=== PATIENT | female | born 1950 | race Caucasian/White ===

== ENCOUNTER 2018-06-02 12:11 | Emergency (ER) | payer MEDICARE, SELFPAY ==
[2018-06-02 12:16] VITALS: BP 137/85; PULSE 80; RESP 14; TEMP 36.7; O2SAT 98; BMI 34.0
--- NOTE | 2018-06-02 12:49 | RAD_ITS ---
STUDY: X-RAY - RIGHT ELBOW REASON FOR EXAM: Female, 68 years old. Elbow pain following a fall. TECHNIQUE: 3 view(s) of the elbow. COMPARISON: None. FINDINGS: There is a nondisplaced radial head fracture. Normal radiocapitellar and ulnotrochlear articulations. Joint effusion. RAD/Elbow min 3 Views IMPRESSION: Nondisplaced radial head fracture. Joint effusion. Electronically Signed: Keith Merrill MD at 13:54 EST Tel [phone], Service support ,
--- NOTE | 2018-06-02 15:22 | ED.DCSUM_ITS ---
- ER Visit Summary Date of Service: 06/02/18 Chief Complaint: Right elbow pain History of Present Illness: The patient is a 68 F who fell today on accident. She injured her right elbow. No other injuries or complaints. Physical Examination: Tender to palpation to her right elbow. Pain with pronation and supination. Neurovascular intact distally. Skin is intact. No other injuries. Test Results: X-ray shows a radial head fracture, nondisplaced. Emergency Department Course and Treatment: Patient was placed in a splint. She tolerated this well. Neurovascular intact distally afterwards. She was treated with a prescription for Percocet and referred to orthopedics. Return for any new or worsening issues. Treatment Plan: As above Disposition: Discharge Impression: 1. Right radial head fracture This note was generated with [employer] dictation software. It may contain incorrect words, spelling, and punctuation that were not noted in review of the chart prior to signing ED Disposition - Plan for ED Patient: Chief Complaint: Upper Extremity Injury Referrals: Karan Schuster MD [Primary Care Provider] -
--- NOTE | 2018-06-02 15:22 | ED.DEP ---
ED Disposition - Plan for ED Patient: Chief Complaint: Upper Extremity Injury Instructions: ED Fx Radial Head Prescriptions: Oxycodone HCl/Acetaminophen [Percocet 5/325] 1 tab PO Q6H PRN PRN 3 Days #12 tab PRN Reason: Pain Referrals: Marcial Carl MD [STAFF PHYSICIAN] -
[2018-06-02 15:31] VITALS: RESP 14
== END 2018-06-02 15:32 | disposition home or self-care (01) ==
LOC: ED 14:20
PROVIDERS: Emergency Provider Emergency Medicine; Family Provider Family Medicine; PCP Family Medicine
DX: S52.124A Nondisplaced fracture of head of right radius, initial encounter for closed fracture (principal); W19.XXXA Unspecified fall, initial encounter; Y93.9 Activity, unspecified; Y92.9 Unspecified place or not applicable; Y99.9 Unspecified external cause status; E03.9 Hypothyroidism, unspecified; Z79.899 Other long term (current) drug therapy
CPT/HCPCS: 29105; 73080; 99283

== ENCOUNTER 2020-08-04 12:00 | Outpatient (RCR) | payer MEDICARE, SELFPAY ==
[2020-08-04] MEDS: COVID-19 VACC, MRNA(PFIZER)/PF 30 MCG/0.3 ML SYRINGE IM (11:13)
[2020-08-25] MEDS: COVID-19 VACC, MRNA(PFIZER)/PF 30 MCG/0.3 ML SYRINGE IM (11:03)
== END 2020-11-01 23:59 ==
LOC: IMMUN 12:00
PROVIDERS: PCP Family Medicine; Visit Provider Family Medicine
DX: Z23 Encounter for immunization (principal)
CPT/HCPCS: 0001A; 0002A; 91300

== ENCOUNTER → 2022-07-30 | Outpatient (CLI) | payer MEDICARE, SELFPAY ==
--- NOTE | 2022-07-30 12:45 | CDU_ITS ---
Reason For Study: AMAUROSIS FUGAX Rt. Velocities/BP Lt. Velocities/BP Prox CCA 121.9/27.4 cm/sec. Prox CCA 94.1/22.8 cm/sec. Mid CCA 117.0/27.4 cm/sec. Mid CCA 99.0/25.3 cm/sec. Dist CCA 58.4/11.8 cm/sec. Dist CCA 65.8/16.7 cm/sec. Prox ICA 61.3/15.8 cm/sec. Prox ICA 63.4/15.5 cm/sec. Mid ICA 51.5/13.4 cm/sec. Mid ICA 83.1/22.6 cm/sec. Dist ICA 45.1/16.4 cm/sec. Dist ICA 50.1/21.5 cm/sec. Rt. ICA/CCA = 61.3/117.0=0.5. Lt. ICA/CCA = 83.1/99.0=0.8. Prox ECA 78.1/22.8 cm/sec. Prox ECA 86.7/16.7 cm/sec. Rt. Vert. 58.5/17.9 cm/sec. Lt. Vert. 49.4/18.8 cm/sec. Right Extracranial There is intimal thickening but no significant atherosclerotic plaque noted in the right common carotid artery. The right proximal CCA is tortuous. There is intimal thickening but no significant atherosclerotic plaque noted in the right internal carotid artery. There is intimal thickening but no significant atherosclerotic plaque noted in the right external carotid artery. Antegrade flow is noted in the right vertebral artery. Left Extracranial There is intimal thickening but no significant atherosclerotic plaque noted in the left common carotid artery. There is intimal thickening but no significant atherosclerotic plaque noted in the left internal carotid artery. The left internal carotid artery is very tortuous. There is no significant atherosclerotic plaque noted in the left external carotid artery. Antegrade flow is noted in the left vertebral artery. Procedure Carotid Duplex 71313. This is a Carotid Duplex examination using B-mode, color flow and specral Doppler. Exam performed in department. VL/Carotid Duplex Ultrasound Interpretation Summary Normal right extracranial internal carotid. Normal left extracranial internal carotid. Patent and antegrade vertebrals bilaterally. Ordering Physician: Raciel Uriarte Referring Physician: Karan Schuster Performed By: Steph Navarrete, MINNIE, RVT
== END | disposition home or self-care (01) ==
LOC: CVS 12:43
PROVIDERS: PCP Family Medicine; Visit Provider Ophthalmology
DX: G45.3 Amaurosis fugax (principal)
CPT/HCPCS: 93880

== ENCOUNTER → 2025-04-07 | Outpatient (CLI) | payer MEDICARE, SELFPAY ==
--- NOTE | 2025-04-07 13:50 | ECHOD_ITS ---
Reason For Study Reason For Study: MURMUR Procedure This was a 2D Doppler, Color Flow transthoracic echocardiogram. The study was technically difficult. Due to arrhythmia. Exam performed in department. Left Ventricle Normal LV size. Mild concentric left ventricular hypertrophy. The left ventricular ejection fraction is 65 %. Stage 1 diastolic dysfunction. Right Ventricle Normal right ventricle. Atria The left and right atria are normal. Mitral Valve Moderate mitral annular calcification extending into the posterior leaflet. Trivial mitral valve insufficiency. Tricuspid Valve Trivial tricuspid valve insufficiency. Unable to estimate RV systolic pressure due to insufficient tricuspid regurgitant envelope. Aortic Valve Trisinus/trileaflet aortic valve. Aortic sclerosis, no stenosis. Mild (1+) aortic valve insufficiency. Pulmonic Valve The pulmonic valve is not well visualized. Great Vessels Moderately dilated ascending aorta. Recommend CT scan for further evaluation. Pericardium/Pleural No pericardial effusion. MMode/2D Measurements & Calculations LVIDd: 3.5 cm IVSd: 1.2 cm Ao root diam: 4.0 cm LVIDs: 1.8 cm LVPWd: 0.97 cm RVDd: 3.6 cm FS: 49.2 % asc Aorta Diam: 5.0 cm LAV(MOD-bp): 51.8 ml LVAd ap4: 23.0 cm2 LAV(MOD-bp) Indexed: 27.5 ml/m2 LVLd ap4: 7.4 cm LAV(MOD-sp2): 49.2 ml EDV(MOD-sp4): 60.6 ml LAV(MOD-sp4): 47.6 ml EDV(sp4-el): 60.5 ml LVAs ap4: 11.6 cm2 LVLs ap4: 6.4 cm ESV(MOD-sp4): 18.4 ml ESV(sp4-el): 17.7 ml EF(MOD-sp4): 69.6 % EF(sp4-el): 70.6 % LVAd ap2: 19.9 cm2 SV(MOD-sp4): 42.2 ml SV(MOD-sp2): 35.4 ml LVLd ap2: 6.9 cm SI(MOD-sp4): 22.4 ml/m2 SI(MOD-sp2): 18.8 ml/m2 EDV(MOD-sp2): 48.8 ml EDV(sp2-el): 48.8 ml LVAs ap2: 9.0 cm2 LVLs ap2: 5.3 cm ESV(MOD-sp2): 13.4 ml ESV(sp2-el): 13.1 ml EF(MOD-sp2): 72.5 % SV(sp4-el): 42.7 ml LA dimension(2D): 4.0 cm LA A4 area: 17.0 cm2 TAPSE: 1.9 cm Time Measurements MV dec time: 0.25 sec Doppler Measurements & Calculations MV E max shreyas: 74.5 cm/sec Lat Peak E' Shreyas: 4.8 cm/sec Med Peak E' Shreyas: 4.9 cm/sec MV A max shreyas: 104.9 cm/sec E/E' lat: 15.4 E/E' med: 15.2 MV E/A: 0.71 MV V2 max: 119.7 cm/sec MV P1/2t max shreyas: 78.7 cm/sec Ao V2 max: 156.5 cm/sec MV max P.7 mmHg MV P1/2t: 82.4 msec Ao max P.8 mmHg MV V2 mean: 59.4 cm/sec MV dec slope: 279.7 cm/sec2 Ao V2 mean: 108.3 cm/sec MV mean P.7 mmHg Ao mean P.2 mmHg MV V2 VTI: 28.1 cm MVA(P1/2t): 2.7 cm2 Ao V2 VTI: 30.4 cm AV (velocity ratio): 0.83 AI max shreyas: 350.0 cm/sec LV V1 max: 119.9 cm/sec PA V2 max: 104.8 cm/sec AI max P.1 mmHg LV V1 max P.8 mmHg AI dec slope: 132.0 cm/sec2 LV V1 mean P.3 mmHg AI P1/2t: 776.3 msec LV V1 mean: 88.2 cm/sec LV V1 VTI: 25.2 cm PI end-d shreyas: 122.3 cm/sec TR max shreyas: 256.7 cm/sec TR max P.4 mmHg ECHO/Echo Complete Interpretation Summary The left ventricular ejection fraction is 65 %. Stage 1 diastolic dysfunction. Aortic sclerosis, no stenosis. Mild (1+) aortic valve insufficiency. Moderately dilated ascending aorta. Recommend CT scan for further evaluation. Ordering Physician: Esteban Holder Referring Physician: Esteban Holder Performed By: Steph Navarrete, MINNIE, RVT
== END | disposition home or self-care (01) ==
LOC: CVS 13:49
PROVIDERS: PCP Family Medicine; Referring Provider Family Medicine; Visit Provider Family Medicine
DX: R01.1 Cardiac murmur, unspecified (principal)
CPT/HCPCS: 93306

== ENCOUNTER → 2025-04-28 | Outpatient (CLI) | payer MEDICARE, SELFPAY ==
--- NOTE | 2025-04-28 10:17 | RAD_ITS ---
PROCEDURE: ESOPHAGUS DUAL CONTRAST 04/28/2025 REASON FOR EXAM: DYSPHAGIA TECHNIQUE: ESOPHAGUS DUAL CONTRAST FLUOROSCOPIC TIME: 50 seconds. Radiation dose: 6.9 mGy FLUOROGRAPHIC IMAGES: 18 COMPARISON: None FINDINGS: The patient ingested barium. Fluoroscopic imaging was obtained. The esophagus is unremarkable. No evidence of obstruction. No evidence of mass lesion. Small hiatal hernia without gastroesophageal reflux. The patient ingested a 12 mm tablet the barium without any difficulty. RAD/Esophagus Dual Contrast IMPRESSION: Small sliding hiatal hernia without gastroesophageal reflux. The patient ingested a 12 mm tablet the barium without any difficulty. Reading Location: [facility]
== END | disposition home or self-care (01) ==
PROVIDERS: PCP Family Medicine; Referring Provider Family Medicine; Visit Provider Family Medicine
DX: R13.10 Dysphagia, unspecified (principal)
CPT/HCPCS: 74221

== ENCOUNTER → 2025-05-03 | Outpatient (CLI) | payer MEDICARE, SELFPAY ==
--- NOTE | 2025-05-03 08:47 | AAAS_ITS ---
Reason For Study Reason For Study: Screening Aorta Measurements Aorta Doppler Measurements Proximal aorta measures1.88 x 1.85cm. in cross-sectional Peak systolic flow velocities within the proximal aorta axis. measure 65.1 cm/sec. Proximal aorta measures1.98cm. in longitudinal axis. Peak systolic flow velocities within the mid aorta measure Mid aorta measures1.54 x 1.52cm. in cross-sectional axis. 90.4 cm/sec. Mid aorta measures1.55cm. in longitudinal axis. Peak systolic flow velocities within the distal aorta Distal aorta measures1.61 x 1.64cm. in cross-sectional axis.measure 66.9 cm/sec. Distal aorta measures1.66cm. in longitudinal axis. Left Iliac Artery Left iliac artery measures 0.89 x 0.88 cm. in the cross-sectional axis. Left iliac artery measures 1.00 cm. in the longitudinal axis. Peak systolic velocity in the left iliac artery measures 124.9 cm/sec. Right Iliac Artery Right iliac artery measures 0.85 x 0.89 cm. in the cross-sectional axis. Right iliac artery measures 0.92 cm. in the longitudinal axis. Peak systolic velocity in the right iliac artery measures 77.7 cm/sec. Procedure Aorta IVC Iliac vasculature or bypass grafts [id number]. Exam performed in department. VL/AAA Screening Interpretation Summary Aorta patent, normal caliber. Bilateral iliac arteries patent, normal caliber. Ordering Physician: Esteban Holder Referring Physician: MD Mariely Karan Performed By: Naomi Miller RVT
== END | disposition home or self-care (01) ==
LOC: CVS 08:45
PROVIDERS: PCP Family Medicine; Referring Provider Family Medicine; Visit Provider Family Medicine
DX: I71.9 Aortic aneurysm of unspecified site, without rupture (principal)
CPT/HCPCS: 76706